=== PATIENT | female | born 1975 | race Caucasian/White ===

== ENCOUNTER 2020-01-22 15:23 | Emergency (ER) | payer BC ==
[~2020-01-22] VITALS: Ht 167.6 cm; Wt 113.4 kg
[2020-01-22 15:23] VITALS: BP_SYST 145
[2020-01-22 19:35] LABS: HEMATOCRIT 40.8 % (36-48); HEMOGLOBIN 13.8 g/dL (12.0-16.0); MEAN CORPUSCULAR HEMOGLOBIN 31 pg (27-31); MEAN CORPUSCULAR HGB CONC 34 % (32-36); MEAN CORPUSCULAR VOLUME 90 fL (79.0-98.0); PLATELET COUNT (AUTO) 240 K/uL (130-430); RED BLOOD CELL COUNT(AUTO) 4.52 MIL/uL (4.2-6.2); RED CELL DISTRIBUTION WIDTH 15.5 % (9.0-15.0); WHITE BLOOD COUNT (AUTO) 9.7 K/uL (4.8-10.8)
[2020-01-22 19:56] LABS: CALCIUM 9.1 mg/dL (8.4-11.0); CREATININE 0.84 mg/dL (0.55-1.30); POTASSIUM 4.4 mmol/L (3.5-5.1)
[2020-01-22 20:05] LABS: ALBUMIN 2.9 g/dL (3.4-4.8); TOTAL BILIRUBIN 0.2 mg/dL (0.0-1.0)
[2020-01-22 20:34] LABS: BAND % (MANUAL) 4 % (0-6); BASOPHILS % (MANUAL) 0 % (0-2); EOSINOPHILS % (MANUAL) 1 % (0-7); LYMPHOCYTES % (MANUAL) 29 % (20-46); MONOCYTES % (MANUAL) 24 % (0-11)
[2020-01-22 20:55] VITALS: BP_SYST 140
== END 2020-01-22 20:32 | disposition home or self-care (01) ==
LOC: SED 15:23
DX: R55 Syncope and collapse (principal)
CPT/HCPCS: 36415; 80053; 85007; 85027; 93005; 99284

== ENCOUNTER 2020-10-11 23:05 | Emergency (ER) | payer BC, OTHER ==
[~2020-10-11] VITALS: Ht 167.6 cm; Wt 108.9 kg
[2020-10-11 23:40] VITALS: BP_SYST 138
[2020-10-11] MEDS ORDERED: ONDANSETRON HCL 4 MG/2 ML VIAL IVP ONE (23:45)
[2020-10-11] MEDS ORDERED: NACL 0.9% 1,000 ML IV ONE (23:45)
--- NOTE | 2020-10-11 23:45 | NUR ---
PAtient wheeled to bed 3 for evaluation
--- NOTE | 2020-10-11 23:47 | NUR ---
ER Dr. Shen at bedside examining patient.
--- NOTE | 2020-10-11 23:50 | NUR ---
Assumed total care of patient. Patient AAO x4 from home c/o vomiting bright red blood x3 weeks. Patient reports she has not been able to drink or eat anything. Patient states she was diagnosed with UTI last but has not taken her antibiotics. Patient denies pain, SOB, diarrhea. Patient placed on data entry specialist. VSS. Breathing even and unlabored. Will continue to monitor. Caregiver at bedside.
--- NOTE | 2020-10-11 23:50 | NUR ---
# 20 gauge angiocath placed to LEFT AC. Use of asceptic technique. Opsite placed over site. Blood return noted. Blood for lab drawn from site. Flushed with 10 cc of normal saline. No evidence of infiltration noted. Patient tolerated well.
--- NOTE | 2020-10-12 00:16 | NUR ---
Patient medicated per MD orders. Patient tolerated well. Patient given warm blankets and lights dimmed. Patient reminded to give urine sample. Unable to go at this time
[2020-10-12 00:31] LABS: BASOPHILS # (AUTO) 0.1 K/uL (0.0-0.2); BASOPHILS % (AUTO) 0.6 % (0.0-2.0); EOSINOPHILS # (AUTO) 0.1 K/uL (0.0-0.4); EOSINOPHILS % (AUTO) 0.7 % (0.0-4.0); HEMATOCRIT 45.9 % (36-48); HEMOGLOBIN 15.6 g/dL (12.0-16.0); LYMPHOCYTES # (AUTO) 3.8 K/uL (1.0-5.5); LYMPHOCYTES % (AUTO) 28.6 % (20.5-51.5); MEAN CORPUSCULAR HEMOGLOBIN 30 pg (27-31); MEAN CORPUSCULAR HGB CONC 34 % (32-36); MEAN CORPUSCULAR VOLUME 88 fL (79.0-98.0); MONOCYTES # (AUTO) 1.2 K/uL (0.0-1.0); MONOCYTES % (AUTO) 9.1 % (1.7-9.3); NEUTROPHILS # (AUTO) 8.1 K/uL (1.8-7.7); PLATELET COUNT (AUTO) 254 K/uL (130-430); RED BLOOD CELL COUNT(AUTO) 5.23 MIL/uL (4.2-6.2); WHITE BLOOD COUNT (AUTO) 13.2 K/uL (4.8-10.8)
[2020-10-12 00:35] LABS: CALCIUM 9.8 mg/dL (8.4-11.0); CREATININE 0.91 mg/dL (0.55-1.30)
[2020-10-12 00:46] LABS: ALBUMIN 3.5 g/dL (3.4-4.8); TOTAL BILIRUBIN 0.9 mg/dL (0.0-1.0)
[2020-10-12 00:52] LABS: POTASSIUM 2.9 mmol/L (3.5-5.1)
[2020-10-12 01:00] LABS: BILIRUBIN,URINE 3+ (NEGATIVE); BLOOD, URINE NEGATIVE (NEGATIVE); COLOR,URINE YELLOW (YELLOW); GLUCOSE,URINE NEGATIVE (NEGATIVE); KETONES,URINE 2+ (NEGATIVE); LEUKOCYTE ESTERASE ,URINE TRACE (NEGATIVE); NITRITE, URINE NEGATIVE (NEGATIVE); PH,URINE 5.5 (5.0-8.0); PROTEIN URINE 1+ (NEGATIVE)
[2020-10-12] MEDS ORDERED: POTASSIUM CHLORIDE 20 MEQ/PKT PACKET PO ONE (01:00)
[2020-10-12 01:05] LABS: CLARITY/URINE HAZY (CLEAR)
[2020-10-12 01:40] LABS: BACTERIA,URINE FEW /HPF (None Seen); RBC,URINE 0-3 /HPF (0-3)
[2020-10-12] MEDS ORDERED: CIPR500T5 PO (01:49)
[2020-10-12] MEDS ORDERED: ONDA4TAB5 PO (01:49)
--- NOTE | 2020-10-12 02:33 | NUR ---
Patient given written and verbal discharge instructions and verbalizes understanding. ER MD MURRIETA discussed with patient the results and treatment provided. Patient in stable condition. ID arm band removed. IV catheter removed intact and dressing applied, no active bleeding. Rx of CIPRO AND ZOFRAN given. Patient educated on pain management and to follow up with PMD. Pain Scale 0/10. Opportunity for questions provided and answered. Medication side effect fact sheet provided.
[2020-10-12 02:34] VITALS: BP_SYST 138
== END 2020-10-12 02:33 | disposition home or self-care (01) ==
LOC: SED 23:05
DX: N39.0 Urinary tract infection, site not specified (principal); R11.2 Nausea with vomiting, unspecified; I10 Essential (primary) hypertension; E11.9 Type 2 diabetes mellitus without complications; J45.909 Unspecified asthma, uncomplicated; Z79.899 Other long term (current) drug therapy
CPT/HCPCS: 36415; 80053; 81000; 83690; 85025; 87086; 96361; 96374; 99283; J2405; J7030

== ENCOUNTER 2023-12-17 21:16 | Emergency (ER) | payer OTHER, MEDICAID ==
[~2023-12-17] VITALS: Ht 160 cm; Wt 77.1 kg
[~2023-12-17 21:16] MED LIST: CIPR500T5 PO; ONDA4TAB5 PO
[2023-12-17 21:19] VITALS: BP_SYST 107; PULSE 80; RESP 17; TEMP 97.7; O2SAT 100
[2023-12-17] MEDS: IBUPROFEN 600 MG TABLET PO ONE (22:54)
[2023-12-17 23:56] VITALS: BP_SYST 114; PULSE 82; RESP 18; TEMP 98.2; O2SAT 100
== END 2023-12-17 23:58 | disposition home or self-care (01) ==
LOC: SED 21:16
DX: S00.83XA Contusion of other part of head, initial encounter (principal); R42 Dizziness and giddiness; J45.909 Unspecified asthma, uncomplicated; E11.9 Type 2 diabetes mellitus without complications; I10 Essential (primary) hypertension; W22.8XXA Striking against or struck by other objects, initial encounter; Y93.89 Activity, other specified; Y92.89 Other specified places as the place of occurrence of the external cause; Y99.8 Other external cause status
CPT/HCPCS: 70450-TC; 99284